=== PATIENT | female | born 1970 | race Caucasian/White ===

== ENCOUNTER → 2019-08-24 10:44 | Outpatient (CLI) | payer OTHER, SELFPAY ==
--- NOTE | 2019-08-24 12:13 | PCM.HP.BLA ---
History and Physical Date of Admission: 08/24/19 HISTORY AND PHYSICAL - BREAST COMPLAINT ? Kari Garza 1970 ? ? REFERRING PHYSICIAN: ??Ashlie Gomez ([facility]), APR* ? CHIEF COMPLAINT:???Left breast abnormal mammogram ? HPI:?Patient seen in conjunction with Dr. Baxter.?The patient is a 48 year old female with a complaint of?an abnormal mammogram. ?The patient had a mammogram on 07/26/2019?which demonstrated left breast microcalcifications: ? IMPRESSION: SUSPICIOUS FINDING - BIOPSY SHOULD BE CONSIDERED The grouped pleomorphic calcifications in the left breast are suspicious of malignancy. ?A stereotactic biopsy is recommended. Charo quach/adan:07/26/2019 16:00:40 Safety Companion(s): Jessica ?RT Arvin(Lupe)(M), [facility] Mammogram BI-RADS: 4 Suspicious finding - Biopsy should be considered Multiple national specialty organizations have released breast cancer screening guidelines for women at average risk for developing breast cancer - guidelines that are based on both evidence and opinion, yet differ on when to start and how often to screen for breast cancer. With representation from Breast Imaging, Internal Medicine, Women's Health, Family Medicine, and Medical/Surgical Oncology, the [facility] has carefully reviewed the data and reached the following consensus: 1) All women should engage in shared decision-making with their providers to decide when to start and how often to screen; 2) All women should have the opportunity to start screening mammography at age 40; 3) For women ages 45-55, we recommend annual screening mammograms; 4) For women ages 55 and over, we support both the transition from an annual to a biennial interval if this aligns more with patient's values and preferences, or continuation with annual screening; 5) All women should discuss with their providers when to stop screening mammograms. ? The patient denies a history of breast masses.??She had a remote history of a prior left breast biopsy.??She?does??perform a self breast exam routinely. ?She notes no skin changes. ?She denies nipple discharge. ?She notes no axillary masses. ?She notes no family history of breast problems. ?She notes no significant breast trauma or breast difficulties in the past. ? The patient has had?2?pregnancies. ??She denies a family history of breast cancer in a first-degree relative. ?Patient does note her mother had ovarian cancer. ?Patient reports she had BRCA testing done on her own which was negative. ? ? PAST MEDICAL HISTORY PAST MEDICAL HISTORY Diagnosis Date ? Diabetes mellitus, gestational ? ? Family history of malignant neoplasm of ovary ? ? Mild dysplasia of cervix 2003 ? Leep for HGSIL and only CIN1 found ? Other psoriasis ? PAST SURGICAL HISTORY PAST SURGICAL HISTORY Procedure Laterality Date ? BONE GRAFT HX ? 2016 ? CERVIX UTERI CONIZA LP ELCTRO EXCI ? 2004 ? LEEP-Cervix ? LAP CHOLECYSTECT/CHOLANGIOGRAPHY ? 08/29/07 ? PAST SURGICAL HISTORY OF ? - ? bunion surgery ? PAST SURGICAL HISTORY OF ? ? ? uterine curretage for retained placenta ? UNSPECIFIED ORAL SURGERY PROCEDURE, BY REPORT ? 2014 ? US BX OF BREAST NEEDLE ? 2000 ? benign ? ? ? CURRENT MEDICATIONS Current Outpatient Medications Medication Sig Dispense Refill ? Norgestimate-Ethinyl Estradiol (TRI-SPRINTEC) 0.18/0.215/0.25 mg-35 mcg (28) tab Take 1 tablet by mouth daily at bedtime. 3 Package 4 ? Clobetasol Propionate 0.05 % sham ? MELOXICAM (MOBIC ORAL) Take by mouth. ? ? ? triamcinolone acetonide (KENALOG) 0.1 % cream Apply 1 application to affected area twice daily. 30 g 0 ? No current facility-administered medications for this visit.? ? ? ALLERGIES:?Bactrim [Sulfamethoxazole-Trimethoprim] ? PERSONAL HISTORY:? SOCIAL HISTORY Social History ? Tobacco Use ? Smoking status: Never Smoker ? Smokeless tobacco: Never Used Substance Use Topics ? Alcohol use: Yes ? ? Comment: Occasionally ? Drug use: No ?? ? FAMILY HISTORY:? FAMILY HISTORY FAMILY HISTORY Problem Relation Age of Onset ? Cancer Mother 31 ?ovarian at 35 ? No Known Problems Brother ? ? Breast Cancer Maternal Grandmother 62 ? at 91 ? Alzheimer's Disease Maternal Grandmother ? ? Arthritis Paternal Grandmother ? ? Fibromyalgia Paternal Grandmother ? ? Emphysema Maternal Grandfather ? ? Heart Maternal Grandfather ? ? ? REVIEW OF SYMPTOMS: ??The review of systems data was entered by the nurse and reviewed by me ? Nursing Notes: Chuck Juarez ?08/01/2019 ?5:05 PM ?Signed REVIEW OF SYSTEMS: ?General:???The patient NOTES fatigue, denies weight loss, denies weight gain, denies feeling hot, and denies feelings of cold. ?Eyes: ?The patient denies glaucoma, denies eye injury/surgery, wears glasses or contacts. ?Ear/Nose/Throat: ?The patient denies allergies, denies hayfever, denies ear infections, and denies bloody noses. ?Cardiovascular: ?The patient denies chest pain, denies heart disease, denies high blood pressure,denies cardiac stent, denies prior heart attack, denies irregular heart beat, denies high cholesterol, ?denies poor circulation, denies heart failure, other cardiac issues, denies claudication, denies cold feet, denies peripheral arterial stent. ?Respiratory: ?The patient denies tuberculosis, denies pneumonia, denies frequent cough, denies pulmonary embolism, denies shortness of breath, and denies coughing up blood. ?Gastrointestinal: ?The patient denies difficulty swallowing, denies acid reflux, denies ulcers, denies vomiting, denies jaundice/hepatitis, denies gallbladder problems, denies black or tarry stools, denies hemorrhoids, denies bleeding from rectum, denies diverticulitis, denies constipation, denies diarrhea, denies loss of stool control, and denies hernias. ?Kidney/Bladder: ?The patient denies kidney stones, denies urine infections, and denies bloody urine. ?Skin: ?The patient denies a history of skin cancer, denies bleeding/changing moles, and denies a history of skin rash. ?Neurologic: ?The patient denies a history of epilepsy/convulsions, denies headaches, denies head/spinal injuries, and denies stroke/TIA. ?Psychiatric: ?The patient denies psychiatric medications, denies depression, and denies voices, denies substance abuse. ?Endocrine: ?The patient denies thyroid disorders, denies diabetes, and denies hormonal problems. ?Hematologic: ?The patient denies a history of bruising, denies bleeding, and denies anemia, denies blood clots. ?Infections: ?The patient denies a history of measles and mumps, denies rheumatic fever, and denies sexually transmitted diseases. ?Musculoskeletal: ?The patient denies back pain/injury, denies back problems, denies sciatica, denies knee/foot trouble,NOTES arthritis, or denies gout. ? ? When was patient's last Mammogram screening? 07-17-2019 and May 2019 ? ?Last Colonoscopy: ?NA ? Chuck Juarez? I have confirmed and edited as necessary, the PFSH and ROS obtained by others. ? ? PHYSICAL EXAMINATION: Exam performed in conjunction with Dr. Baxter ? General: ?The patient is 48 year old female, well nourished, well hydrated in no acute distress. ?The patient is oriented to time, place, and person. ? VITALS:?Blood pressure 146/86, pulse 83, temperature 36.7 ?C (98 ?F), weight 79.6 kg (175 lb 6.4 oz), SpO2 99 %.?Body mass index is 30.89 kg/m?.? ? HEENT: ?Normal cephalic, ataumatic, pupils are equally round, sclera are anicteric, mucous membranes are moist, oropharynx is clear. ?Neck has no masses, asymmetry or lymphadenopathy. ? ? Extremities: ?no clubbing, cyanosis or edema. ?No adenopathy. ? Breast: ?Visual inspection reveals no retractions, nipple inversion, or skin changes. ?Palpation of the right breast reveals no dominant or suspicious masses. ?Palpation of the left breast reveals no dominant or suspicious masses. ?Axillary exam demonstrates no suspicious masses in either the left or right axilla. ?There is no nipple discharge expressed from either the left or right breast. ? LABORATORY VALUES: As Noted ? RADIOLOGIC STUDIES: ?As Noted ? Assessment ? IMPRESSION:?abnormal left mammogram with microcalcifications ? PLAN:??Dr. Baxter?also evaluated the patient and participated in development of the following plan. ?He plans?to perform a stereotactic biopsy of the left breast. ?The planned surgical procedure was discussed extensively with the patient. ?The risks, benefits, anticipated outcomes and possible complications were mentioned. ?My staff has also explained the procedure in understandable terms and the patient was given the option to take printed material concerning the planned procedure. ?The patient had the opportunity to ask questions concerning the planned procedure. ?The patient freely consents to the planned procedure. ? Diagnoses:?(R92.8) Abnormal mammogram ?(primary encounter diagnosis) (R92.0) Mammographic microcalcification found on diagnostic imaging of breast ? My findings have been communicated to??Ashlie?Gomez?via shared medical record. ?This note will be forwarded to Brandon Smith MD. ? Return to Clinic: The patient is instructed to follow-up with me?1 week post operatively. ? ? Charlette Xiao PA-C
--- NOTE | 2019-08-25 12:34 | PCM.OPRPT ---
Report of Operation Date of Procedure: 08/24/19 Pre-Operative Diagnosis: micro-calcifications left breast Post-Operative Diagnosis: locally localizable micrococcus patient left breast Surgery/Procedure Performed:: aborted left stereotactic biopsy water pump operator: None Specimen's removed: none Description of Procedure: patient was brought to the stereotactic suite and informed of the plan course of events. The left breast was positioned the CC approach. Multiple images were obtained trying to localize the abnormalities which were vague on her standard mammogram.Sufficiently clustered group of microcalcifications identified for biopsy. The procedure was aborted and the patient has plans for six-month follow-up mammogram.
== END ==
PROVIDERS: Referring Provider Surgery; Visit Provider Surgery
DX: R92.0 Mammographic microcalcification found on diagnostic imaging of breast (principal)
CPT/HCPCS: 19081

== ENCOUNTER → 2020-03-20 13:59 | Outpatient (CLI) | payer OTHER, SELFPAY ==
--- NOTE | 2020-03-20 14:01 | RAD_ITS ---
STUDY: X-RAY - PELVIS REASON FOR EXAM: Female, 49 years old. Arthritis. TECHNIQUE: One view of the pelvis was obtained. COMPARISON: None. FINDINGS: There is a non-specific bowel gas pattern. Normal visualized soft tissue structures. Normal bilateral iliac wings, sacroiliac joints and visualized sacrum. Normal visualized bilateral superior and inferior pubic rami. Normal pubic symphysis. Normal ischial tuberosities. Normal visualized right femoral head. Normal right acetabulum. Normal right hip joint. Normal visualized left femoral head. Normal left acetabulum. Normal left hip joint. RAD/Pelvis 1 or 2 Views IMPRESSION: Normal x-ray examination of the pelvis. Electronically Signed: Madhu Abreu DO at 23:04 EDT Tel [phone], Service support ,
[2020-03-20 15:54] LABS: Absolute Lymphocyte Count 2.38 X10^3/uL (0.83-4.51); Absolute Neutrophil Count 6.1 X10^3/uL (2.0-7.7); Basophil# 0.04 X10^3/uL; Basophil% 0.4 % (0-1); Eosinophil# 0.23 X10^3/uL; Eosinophils% 2.4 % (0-5); Hematocrit 40.3 % (37-47); Hemoglobin 13.1 g/dL (12.0-15.0); Lymphocyte # 2.38 X10^3/ul (4.0); Lymphocyte % 25.2 % (19-41); Mean Corp Hgb Conc 32.5 g/dL (32-36); Mean Corpuscular Hgb 27.6 pg (27.0-32.0); Mean Corpuscular Volume 84.8 fL (81-99); Mean Platelet Vol. 11.2 fl (6.2-12.0); Monocyte# 0.63 X10^3/uL; Monocyte% 6.7 % (0-10); NRBC Flagged by Analyzer 0 % (0-5); Neutrophil # 6.13 X10^3/uL (2.7-7.7); Neutrophil % 65.1 % (47-70); Platelet Count 271 K/mm3 (150-450); RBC Distribution Width SD 40.4 fl (35.1-43.9); Red Blood Count 4.75 M/mm3 (4.2-5.4); White Blood Count 9.4 K/mm3 (4.4-11.0)
[2020-03-20 16:17] LABS: Erythrocyte Sedimentation Rate 8 mm/hr (0-20)
[2020-03-20 16:33] LABS: ALB/GLOB Ratio 0.9 RATIO (0.9-2.4); AST(SGOT) 15 U/L (15-37); Alanine Aminotransfer ALT/SGPT 28 U/L (13-56); Albumin, Serum 3.8 g/dL (3.2-5.0); Alkaline Phosphatase 98 U/L (45-117); Anion Gap 4 (5-15); BUN 14 mg/dL (7-18); CRP 9.82 mg/L (0.0-3.0); Chloride 105 mmol/L (98-107); Creatinine, Serum 0.74 mg/dL (0.55-1.02); EST Glomerular Filtration Rate 89 mL/min (>60); Est Glom Filt Rate - Afr Amer 108 mL/min (>60); Globulin 4.3 g/dL (2.2-4.2); Glucose 80 mg/dL (74-106); Potassium 3.4 mmol/L (3.5-5.1); Protein, Total 8.1 g/dL (6.4-8.2); Rheumatoid Factor < 10.0 IU/mL (<15); Sodium Level 139 mmol/L (136-145)
[2020-03-21 09:36] LABS: Hepatitis B Surface Antibody Non-Reactive; Hepatitis B Surface Antigen Non-Reactive (Nonreactive); Hepatitis C Antibody Non-Reactive (Nonreactive)
[2020-03-22 12:34] LABS: ANTINUCLEAR ANTIBODIES DIRECT Negative (Negative)
[2020-03-27 03:07] LABS: QNTFERON TB Mitogen Value > 10.00 IU/mL (.); QNTFERON TB Nil Value 0.01 IU/mL (.); QNTFERON TB1+ Ag Value 0.01 IU/mL (.); QNTFERON TB2+ Ag Value 0.02 IU/mL (.)
[2020-03-27 11:23] LABS: CCP IgG Antibodies 5 units (0-19); HLA B27 Negative (.); Hepatitis B Core AB IgM Negative (Negative); QNTIFERON TB Positive Criteria Negative (Negative)
== END ==
PROVIDERS: Referring Provider Internal Medicine Rheumatology; Visit Provider Internal Medicine Rheumatology
DX: L40.59 Other psoriatic arthropathy (principal); L40.8 Other psoriasis; R51 Headache
CPT/HCPCS: 36415; 72170; 80053; 81374; 85025; 85652; 86038; 86140; 86200; 86431; 86480; 86705; 86706; 86803; 87340